=== PATIENT | female | born 1970 | race Two or more races ===

== ENCOUNTER 2018-02-01 19:23 | Emergency (ER) | payer OTHER ==
[2018-02-01 20:23] VITALS: RESP 16
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
[2018-02-01 22:20] VITALS: BP 115/72; PULSE 72; TEMP 97.9
[2018-02-02 06:00] VITALS: O2SAT 99
--- NOTE | 2018-02-02 12:44 | RAD ---
Date of service: 02/01/2018 PROCEDURE: Cervical Spine Radiographs. HISTORY: Pain. COMPARISON: Limited submitted images available from cervical spine x-ray performed 06/06/11 FINDINGS: BONES: Straightening of the normal cervical lordosis may be related to muscle spasm or positioning. Alignment appears otherwise maintained. No acute displaced fracture identified. Dens tip is obscured. DISC SPACES: Unremarkable. SOFT TISSUES: Unremarkable. No prevertebral soft tissue swelling. OTHER FINDINGS: None. IMPRESSION: Straightening of the normal cervical lordosis may be related to muscle spasm or positioning. Dens tip obscured and cannot be adequately visualized. No acute displaced fracture identified.
== END 2018-02-01 22:20 | disposition home or self-care (01) ==
LOC: C.ER 19:23
DX: S16.1XXA Strain of muscle, fascia and tendon at neck level, initial encounter (principal); S23.3XXA Sprain of ligaments of thoracic spine, initial encounter; V49.9XXA Car occupant (driver) (passenger) injured in unspecified traffic accident, initial encounter; E03.9 Hypothyroidism, unspecified

== ENCOUNTER 2018-04-07 13:01 | Emergency (ER) | payer OTHER ==
[2018-04-07 13:13] VITALS: BP 119/72; PULSE 66; RESP 16; TEMP 97.8; O2SAT 100
[2018-04-07] MEDS ORDERED: Oxycodone/Acetaminophen 5/325 mg Tab PO STA (13:28)
--- NOTE | 2018-04-07 13:28 | C.PDOC ---
History Of Present Illness RECUR R MID BACK PAIN X 1 WEEK. SIM TO PRIOR EPISODES. SAW PMD FOR SAME, NO IMPROVE W RX NSAIDS AND TYLENOL. NO TRAUMA. LOCALIZED WORSE W MOVEMENT. NO OTHER ASSOC SX EXAM MILD DIST NONTOXIC BACK +SPASM R UPPER/MID BACK W LOCAL TEND. NO SPINAL TEND SKIN WNL REMAINDER NEG Time Seen by Provider: 04/07/18 13:15 Chief Complaint (Nursing): Back Pain History Per: Patient History/Exam Limitations: no limitations Onset/Duration Of Symptoms: Days Current Symptoms Are (Timing): Still Present Severity: Moderate Past Medical History Reviewed: Historical Data, Nursing Documentation, Vital Signs Vital Signs: Last Vital Signs Temp 97.8 F 04/07/18 13:09 Pulse 66 04/07/18 13:09 Resp 16 04/07/18 13:09 BP 119/72 04/07/18 13:09 Pulse Ox 100 04/07/18 13:09 - Medical History PMH: Asthma, Hypothyroidism, Seizures Other Surgeries: Hx of surgeries Family History: States: No Known Family Hx - Social History Hx Tobacco Use: No Hx Alcohol Use: No Hx Substance Use: No - Immunization History Hx Tetanus Toxoid Vaccination: No Hx Influenza Vaccination: No Hx Pneumococcal Vaccination: No Review Of Systems Except As Marked, All Systems Reviewed And Found Negative. Gastrointestinal: Negative for: Nausea, Vomiting, Abdominal Pain Genitourinary: Negative for: Dysuria, Incontinence, Hematuria Musculoskeletal: Positive for: Back Pain Physical Exam - Physical Exam Appears: Non-toxic, Other (mild distress) Skin: Normal Color, Warm, Dry, Other (skin wnl to back) Head: Atraumatic, Normacephalic Eye(s): bilateral: Normal Inspection Cardiovascular: Rhythm Regular Respiratory: Other (NARD) Back: Muscle Spasm (spasm to right upper/mid back with local tenderness), Other (no spinal tenderness) Neurological/Psych: Oriented x3, Normal Speech ED Course And Treatment O2 Sat by Pulse Oximetry: 100 (RA) Pulse Ox Interpretation: Normal Medical Decision Making Medical Decision Making: Plan: --Percocet PO --Zofran PO Disposition Counseled Patient/Family Regarding: Diagnosis, Need For Followup, Rx Given - Disposition Referrals: YOUR,PMD [Other] Disposition: HOME/ ROUTINE Disposition Time: 13:27 Condition: IMPROVED Prescriptions: Tramadol HCl [Ultram] 50 mg PO QID #20 tab Instructions: Upper Back Pain (DC) Forms: [facility] (Togolese) - Clinical Impression Clinical Impression: Back pain - Scribe Statement The provider has reviewed the documentation as recorded by the Scribe Huseyin Jeff Provider Attestation: All medical record entries made by the Scribe were at my direction and personally dictated by me. I have reviewed the chart and agree that the record accurately reflects my personal performance of the history, physical exam, medical decision making, and the department course for this patient. I have also personally directed, reviewed, and agree with the discharge instructions and disposition.
[2018-04-07] MEDS ORDERED: Oxycodone/Acetaminophen 5/325 mg Tab ONE (13:47)
== END 2018-04-07 14:08 | disposition home or self-care (01) ==
LOC: C.ER 13:01
DX: M54.89 Other dorsalgia (principal)